=== PATIENT | female | born 1960 | race Caucasian/White ===

== ENCOUNTER 2020-01-14 22:16 | Emergency (ER) | payer MEDICARE, OTHER ==
[2020-01-14] MEDS ORDERED: Morphine 2 MG/ML SYRINGE ONE (22:34)
[2020-01-14] MEDS ORDERED: Morphine 2 MG/ML SYRINGE IVPUSH ONE (22:35)
[2020-01-14] MEDS ORDERED: Amiodarone In Dextrose,Iso-Osm 150 MG in Premix Bag 1 BAG IV ONE ×2 (23:00)
[2020-01-14] MEDS ORDERED: Amiodarone 150 MG/3 ML SDV ONE (23:00)
--- NOTE | 2020-01-14 23:04 | EDM.PDOC ---
ED HPI GENERAL MEDICAL PROBLEM - General Chief Complaint: CPR in Progress Stated Complaint: [facility] Time Seen by Provider: 01/14/20 22:16 - History of Present Illness INITIAL COMMENTS - FREE TEXT/NARRATIVE: 59-year-old female brought into the emergency room cardiopulmonary arrest. The patient called 911 after developing some chest pain while washing dishes. The patient just returned to her son's house after flying here from the [facility]. She thinks she was exposed to COVID 4 days ago. She developed chest pain. She was evaluated and brought in by EMS just as they were pulling into the ambulance bay the patient became unresponsive and CPR was initiated. The patient was wheeled to trauma 1. Were CPR was started after confirming no pulse. She was hooked up to the monitors. And received respiratory support from RT. We checked for a pulse there was no pulse however she had V. Fib on the monitor. She received 100 J of biphasic defibrillation. CPR was again initiated the patient was starting to breathe on her own she developed a pulse. The patient received 300 mg of amiodarone. She received respiratory support she maintained her own blood pressure. After several minutes she attempted conver sing with staff. And within 30 minutes of the event was back to baseline. Patient has a significant family history of coronary artery disease but the patient does not have a history of coronary artery disease however she has obesity issues and is post bypass surgery I believe with a sleeve procedure. She has never smoked she is treated for hypothyroidism. After ROSC the patient complained of chest pain especially with deep inspiration she has some underlying chest pressure and she has some significant left calf pain. - Related Data Allergies Allergy/AdvReac Type Severity Reaction Status Date / Time bupropion [From Wellbutrin] Allergy Severe Blisters Verified 01/15/20 00:30 ED ROS GENERAL - Review of Systems Review Of Systems: See Below Constitutional: Reports: No Symptoms HEENT: Reports: No Symptoms Respiratory: Reports: Pleuritic Chest Pain (After CPR) Cardiovascular: Reports: Chest Pain (She also has some chest pressure) GI/Abdominal: Reports: No Symptoms. Denies: Abdominal Pain : Reports: Other (She is currently on Macrodantin for a urinary tract infection) Musculoskeletal: Reports: No Symptoms Skin: Reports: No Symptoms Neurological: Reports: No Symptoms Psychiatric: Reports: No Symptoms Hematologic/Lymphatic: Reports: No Symptoms ED EXAM, CPR - Physical Exam Exam: See Below Limited By: No Limitations (After return of spontaneous circulation she is alert and oriented very cooperative) General Appearance: Alert, No Apparent Distress, Other (He is on supplemental oxygen per nasal cannula pulse ox shows 96% on 5 L) Eye Exam: Bilateral Eye: Normal Inspection, PERRL Ears: Normal External Exam, Normal Canal, Hearing Grossly Normal, Normal TMs Nose: Normal Inspection, Normal Mucosa, No Blood Throat/Mouth: Normal Inspection, Normal Lips, Normal Gums, Normal Oropharynx, Normal Voice, No Airway Compromise Head: Atraumatic, Normocephalic Neck: No: Lymphadenopathy (R), Lymphadenopathy (L), Tender Midline Respiratory Chest: No Respiratory Distress, Lungs Clear, Normal Breath Sounds Cardiovascular: Regular Rate, Rhythm, No Murmur, Other (And pretibial edema coul d be secondary to her body habitus) GI/Abdominal Exam: Normal Bowel Sounds, Soft, Non-Tender Extremities: Other (Has left-sided calf tenderness.) Skin Exam: Warm, Dry, Intact Course - Orders/Labs/Meds Orders: Active Orders 24 hr Category Date Time Status EKG Documentation Completion [RC] ASDIRECTED Care 01/14/20 22:20 Active EKG Documentation Completion [RC] ASDIRECTED Care 01/14/20 23:25 Active Chest 1V Frontal [CR] Stat Exams 01/14/20 22:49 Taken VL Duplex Lwr Ext Veins Ltd Lt [US] Stat Exams 01/14/20 22:55 Taken Amiodarone In Dextrose,Iso-Osm [Nexterone in Dextrose Med 01/14/20 22:45 Active 360 MG/200 ML] 360 mg in 200 ml IV ASDIRECTED Heparin Sodium/D5W [Heparin 25,000 Units in D5W 500 ML] Med 01/14/20 23:30 Active 25,000 units in 500 ml IV TITRATE Nitroglycerin/D5W [Nitroglycerin 25 MG/D5W 250 ML] Med 01/14/20 23:45 Active 25 mg in 250 ml IV TITRATE Medication Orders Amiodarone HCl/Dextrose (Nexterone In Dextrose 360 Mg/200 Ml) 360 mg in 200 mls @ 33.333 mls/hr IV ASDIRECTED ESTER; Protocol Heparin Sodium/Dextrose (Heparin 25,000 Units In D5w 500 Ml) 25,000 units in 500 mls @ 20 mls/hr IV TITRATE ESTER; Protocol Last Admin: 01/15/20 00:03 Dose: 1,000 units/hr, 20 mls/hr Documented by: ROCHELLE Cosigned by: ASHWINI Nitroglycerin/Dextrose (Nitroglycerin 25 Mg/D5w 250 Ml) 25 mg in 250 mls @ 1.5 mls/hr IV TITRATE ESTER; Protocol Last Titration: 01/15/20 00:19 Dose: 5 mcg/min, 3 mls/hr Documented by: [id number] Admin: 01/14/20 23:51 Dose: 2.5 mcg/min, 1.5 mls/hr Documented by: [email or web address] Labs: Laboratory Tests 01/14/20 01/14/20 01/14/20 Range/Units 22:28 22:28 22:28 WBC 4.80 (3.98-10.04) K/mm3 RBC 5.10 (3.98-5.22) M/mm3 Hgb 14.6 (11.2-15.7) gm/dl Hct 45.7 H (34.1-44.9) % MCV 89.6 (79.4-94.8) fl MCH 28.6 (25.6-32.2) pg MCHC 31.9 L (32.2-35.5) g/dl RDW Std Deviation 45.5 (36.4-46.3) fL Plt Count 260 (182-369) K/mm3 MPV 9.0 L (9.4-12.3) fl Neut % (Auto) 7.2 L (34.0-71.1) % Lymph % (Auto) 83.5 H (19.3-51.7) % Vance % (Auto) 3.5 L (4.7-12.5) % Eos % (Auto) 2.5 (0.7-5.8) Baso % (Auto) 0.6 (0.1-1.2) % Neut # (Auto) 0.34 L (1.56-6.13) K/mm3 Lymph # (Auto) 4.01 H (1.18-3.74) K/mm3 Vance # (Auto) 0.17 L (0.24-0.36) K/mm3 Eos # (Auto) 0.12 (0.04-0.36) K/mm3 Baso # (Auto) 0.03 (0.01-0.08) K/mm3 Manual Slide Review Abnormal smear PT 10.8 (9.7-11.7) SECONDS INR 1.01 APTT 30 (22-31) SECONDS Sodium 138 (136-145) mEq/L Potassium 3.3 L (3.5-5.1) mEq/L Chloride 101 (98-107) mEq/L Carbon Dioxide 20 L (21-32) mEq/L Anion Gap 20.3 H (5-15) BUN 19 H (7-18) mg/dL Creatinine 1.1 H (0.55-1.02) mg/dL Est Cr Clr Drug Dosing TNP Estimated GFR (MDRD) 51 (>60) mL/min BUN/Creatinine Ratio 17.3 (14-18) Glucose 227 H (74-106) mg/dL Lactic Acid (0.4-2.0) mmol/L Calcium 9.1 (8.5-10.1) mg/dL Total Bilirubin 0.7 (0.2-1.0) mg/dL AST 55 H (15-37) U/L ALT 112 H (14-59) U/L Alkaline Phosphatase 123 H (46-116) U/L Troponin I < 0.017 (0.00-0.056) ng/mL Total Protein 7.3 (6.4-8.2) g/dl Albumin 3.5 (3.4-5.0) g/dl Globulin 3.8 gm/dL Albumin/Globulin Ratio 0.9 L (1-2) SARS-CoV-2 RNA (INDIRA) (NEGATIVE) 01/14/20 01/14/20 01/15/20 Range/Units 22:28 23:12 01:04 WBC (3.98-10.04) K/mm3 RBC (3.98-5.22) M/mm3 Hgb (11.2-15.7) gm/dl Hct (34.1-44.9) % MCV (79.4-94.8) fl MCH (25.6-32.2) pg MCHC (32.2-35.5) g/dl RDW Std Deviation (36.4-46.3) fL Plt Count (182-369) K/mm3 MPV (9.4-12.3) fl Neut % (Auto) (34.0-71.1) % Lymph % (Auto) (19.3-51.7) % Vance % (Auto) (4.7-12.5) % Eos % (Auto) (0.7-5.8) Baso % (Auto) (0.1-1.2) % Neut # (Auto) (1.56-6.13) K/mm3 Lymph # (Auto) (1.18-3.74) K/mm3 Vance # (Auto) (0.24-0.36) K/mm3 Eos # (Auto) (0.04-0.36) K/mm3 Baso # (Auto) (0.01-0.08) K/mm3 Manual Slide Review PT (9.7-11.7) SECONDS INR APTT (22-31) SECONDS Sodium (136-145) mEq/L Potassium (3.5-5.1) mEq/L Chloride (98-107) mEq/L Carbon Dioxide (21-32) mEq/L Anion Gap (5-15) BUN (7-18) mg/dL Creatinine (0.55-1.02) mg/dL Est Cr Clr Drug Dosing Estimated GFR (MDRD) (>60) mL/min BUN/Creatinine Ratio (14-18) Glucose (74-106) mg/dL Lactic Acid 4.5 H* (0.4-2.0) mmol/L Calcium (8.5-10.1) mg/dL Total Bilirubin (0.2-1.0) mg/dL AST (15-37) U/L ALT (14-59) U/L Alkaline Phosphatase (46-116) U/L Troponin I 1.658 H* (0.00-0.056) ng/mL Total Protein (6.4-8.2) g/dl Albumin (3.4-5.0) g/dl Globulin gm/dL Albumin/Globulin Ratio (1-2) SARS-CoV-2 RNA (INDIRA) Negative (NEGATIVE) Meds: Medications Generic Name Dose Route Start Last Admin Trade Name Freq PRN Reason Stop Dose Admin Amiodarone HCl/Dextrose 360 mg in 200 mls @ 33.333 mls/hr 01/14/20 22:45 Nexterone In Dextrose 360 Mg/200 Ml IV ASDIRECTED [facility] Protocol Heparin Sodium/Dextrose 25,000 units in 500 mls @ 20 mls/hr 01/14/20 23:30 01/15/20 00:03 Heparin 25,000 Units In D5w 500 Ml IV 1,000 units/hr TITRATE ESTER 20 mls/hr Administration Protocol 1,000 UNITS/HR Nitroglycerin/Dextrose 25 mg in 250 mls @ 1.5 mls/hr 01/14/20 23:45 01/15/20 00:19 Nitroglycerin 25 Mg/D5w 250 Ml IV 5 mcg/min TITRATE ESTER 3 mls/hr Titration Protocol 2.5 MCG/MIN Discontinued Medications Generic Name Dose Route Start Last Admin Trade Name Freq PRN Reason Stop Dose Admin Aspirin 324 mg 01/14/20 23:30 01/14/20 23:49 Aspirin PO 01/14/20 23:31 324 mg ONETIME ONE Administration Heparin Sodium (Porcine) 4,000 units 01/14/20 23:30 01/14/20 23:47 Heparin Sodium IVPUSH 01/14/20 23:31 4,000 units .BOLUS ONE Administration Amiodarone HCl/Dextrose 150 mg 100 mls @ 600 mls/hr 01/14/20 23:00 / Premix IV 01/14/20 23:09 NOW ONE Morphine Sulfate Confirm 01/14/20 22:34 01/15/20 00:30 Morphine Administered 01/14/20 22:35 Not Given Dose 2 mg .ROUTE .STK-MED ONE Morphine Sulfate 1 mg 01/14/20 22:35 Morphine IVPUSH 01/14/20 22:36 ONETIME ONE Potassium Chloride 40 meq 01/15/20 00:34 01/15/20 00:57 Klor-Con M20 PO 01/15/20 00:35 40 meq ONETIME ONE Administration Rosuvastatin Calcium 20 mg 01/14/20 23:31 01/14/20 23:50 Crestor PO 01/14/20 23:32 20 mg ONETIME ONE Administration - Re-Assessments/Exams Free Text/Narrative Re-Assessment/Exam: 01/15/20 00:39 Lower extremity Dopplers unremarkable chest x-ray shows some borderline cardiomegaly but no acute changes. COVID testing is negative she is mildly hypokalemic with a potassium of 3.3 she will receive 40 mEq of oral potassium. It is negative lactic acid is 4.5 probably from cardiopulmonary arrest Case was discussed with Dr. Morrow, share holder at [place] in [place] who accepted the patient in transfer 2300. Case was also discussed with Dr. Gutierrez urologist at [place] who did recommend aspirin nitro heparin and start a statin. Went ahead and started her on nitro drip gently and so far she is doing okay heparin has been started she chewed aspirin 324 mg and she was started on Crestor 01/15/20 01:04 Patient still has limited chest pressure will increase the nitro drip to 7.5 mcg/min. Case reviewed with Dr. Gutierrez and we will recheck another troponin. He recommends decreasing the amiodarone drip if needed to help bring up the blood pressure if we have to increase the nitro. 01/15/20 01:41 Second troponin went up to 1.65. I have notified [place] 1 call of this. This is perhaps a little more than I would expect from a single shock and a few minutes of compression. Departure - Departure Time of Disposition: 23:00 Disposition: DC/Tfer to Acute Hospital 02 Clinical Impression: Cardiopulmonary arrest with successful resuscitation - Discharge Information Referrals: PCP,Not In Area [Primary Care Provider] - Forms: ED Department Discharge - My Orders Last 24 Hours: My Active Orders 01/14/20 22:20 EKG Documentation Completion [RC] ASDIRECTED 01/14/20 22:45 Amiodarone In Dextrose,Iso-Osm [Nexterone in Dextrose 360 MG/200 ML] 360 mg in 200 ml IV ASDIRECTED 01/14/20 22:55 VL Duplex Lwr Ext Veins Ltd Lt [US] Stat 01/14/20 23:25 EKG Documentation Completion [RC] ASDIRECTED 01/14/20 23:45 Nitroglycerin/D5W [Nitroglycerin 25 MG/D5W 250 ML] 25 mg in 250 ml IV TITRATE - Assessment/Plan Last 24 Hours: My Active Orders 01/14/20 22:20 EKG Documentation Completion [RC] ASDIRECTED 01/14/20 22:45 Amiodarone In Dextrose,Iso-Osm [Nexterone in Dextrose 360 MG/200 ML] 360 mg in 200 ml IV ASDIRECTED 01/14/20 22:55 VL Duplex Lwr Ext Veins Ltd Lt [US] Stat 01/14/20 23:25 EKG Documentation Completion [RC] ASDIRECTED 01/14/20 23:45 Nitroglycerin/D5W [Nitroglycerin 25 MG/D5W 250 ML] 25 mg in 250 ml IV TITRATE
[2020-01-14] MEDS ORDERED: Heparin Sodium/D5W 25,000 UNITS/500 ML BAG IV SCH (23:30)
[2020-01-14] MEDS ORDERED: Aspirin 81 MG Tab.Chew PO ONE (23:30)
[2020-01-14] MEDS ORDERED: Heparin Sodium 5,000 Units/ML Vial IVPUSH ONE (23:30)
[2020-01-14] MEDS ORDERED: Rosuvastatin 10 MG Tab PO ONE (23:31)
[2020-01-14] MEDS ORDERED: Nitroglycerin/D5W 25 MG/250 ML BOTTLE IV SCH (23:45)
[2020-01-15] MEDS ORDERED: Potassium Chloride 20 MEQ Tab.ER PO ONE (00:34)
== END 2020-01-15 01:41 ==
LOC: JD.ED 22:16
DX: I46.9 Cardiac arrest, cause unspecified (principal); E87.6 Hypokalemia; Z88.8 Allergy status to other drugs, medicaments and biological substances; Z20.828 Contact with and (suspected) exposure to other viral communicable diseases
CPT/HCPCS: 36415; 51701; 71045; 80053; 83605; 84484; 85025; 85610; 85730; 92950; 93005; 93971; 96365; 96366; 96368; 96375; 99285; A9270; J0282; J1644; J2270; J3490; U0002; 93010

== ENCOUNTER 2020-03-24 12:26 | Emergency (ER) | payer MEDICARE, OTHER ==
[2020-03-24] MEDS ORDERED: EPINEPHrine 1:10,000 1 MG/10 ML Syringe IM PRN (13:43)
[2020-03-24] MEDS ORDERED: Famotidine 20 MG/2 ML SDV IVPUSH PRN (13:43)
[2020-03-24] MEDS ORDERED: diphenhydrAMINE 50 MG/ML SDV IVPUSH PRN (13:43)
[2020-03-24] MEDS ORDERED: methylPREDNISolone Sodium Succinate 125 MG/2 ML SDV IVPUSH PRN (13:43)
[2020-03-24] MEDS ORDERED: Sodium Chloride 0.9% 10 ML Syringe FLUSH SCH (13:45)
--- NOTE | 2020-03-24 13:51 | EDM.PDOC ---
ED HPI GENERAL MEDICAL PROBLEM - General Chief Complaint: General Stated Complaint: COVID + Time Seen by Provider: 03/24/20 12:41 Source of Information: Reports: Patient, RN Notes Reviewed History Limitations: Reports: No Limitations - History of Present Illness INITIAL COMMENTS - FREE TEXT/NARRATIVE: Patient is a 59-year-old female presenting to the emergency department for mo noclonal antibody treatment after diagnosis of Covid at the walk-in clinic today. She states that she developed "cold symptoms "about 3 to 4 days ago. She describes nasal congestion, postnasal drip, and sore throat. She is had no cough or shortness of breath. Denies fever or chills. She has a history of cardiac arrest and has had an AICD placed. States that no blockages or abnormalities were found within the heart. They said she had "sick heart syndrome ". Throat Pain Score (Numeric/FACES): 3 - Related Data Allergies Allergy/AdvReac Type Severity Reaction Status Date / Time bupropion [From Wellbutrin] Allergy Intermediate Blisters Verified 01/17/20 12:36 Home Meds: Home Meds Biotin 1 tab PO DAILY 03/24/20 [History] Docusate Sodium [Colace] 1 tab PO DAILY 03/24/20 [History] Levothyroxine 1 tab PO WEEKLY 03/24/20 [History] Levothyroxine [Synthroid] 50 mcg PO DAILY 03/24/20 [History] Metoprolol Succinate 1 tab PO DAILY 03/24/20 [History] Mv-Mn/Iron/Folic Acid/Herb 190 [Vitamin D3 Complete Caplet] 1 tab PO DAILY 03/24/20 [History] Selenium 200 mcg PO DAILY 03/24/20 [History] Vitamin E 100 unit PO DAILY 03/24/20 [History] atorvaSTATin [Lipitor] 1 tab PO BEDTIME 03/24/20 [History] hydrOXYzine HCL [Atarax] 25 mg PO Q6H 03/24/20 [History] Past Medical History Cardiovascular History: Reports: DE, Pacemaker Respiratory History: Reports: Sleep Apnea [employer] History: Reports: Psychiatric History: Reports: Anxiety Endocrine/Metabolic History: Reports: Hypothyroidism - Infectious Disease History Infectious Disease History: Reports: Chicken Pox, Herpes - Past Surgical History HEENT Surgical History: Reports: Tonsillectomy GI Surgical History: Reports: Bariatric Procedure, Cholecystectomy, Hernia Repair/Other, Other (See Below) Other GI Surgeries/Procedures: hernia repair x 3, small intestinal removal. 2012 bariatric procedure Female Surgical History: Reports: Section, Hysterectomy Social & Family History - Tobacco Use Tobacco Use Status *Q: Never Tobacco User Second Hand Smoke Exposure: No - Caffeine Use Caffeine Use: Reports: Coffee - Recreational Drug Use Recreational Drug Use: No ED ROS GENERAL - Review of Systems Review Of Systems: See Below Constitutional: Reports: No Symptoms. Denies: Fever, Chills, Weakness HEENT: Reports: Rhinitis, Throat Pain Respiratory: Reports: No Symptoms Cardiovascular: Reports: No Symptoms Endocrine: Reports: No Symptoms GI/Abdominal: Reports: No Symptoms : Reports: No Symptoms Musculoskeletal: Reports: No Symptoms Skin: Reports: No Symptoms Neurological: Reports: Dizziness. Denies: Headache Psychiatric: Reports: No Symptoms Hematologic/Lymphatic: Reports: No Symptoms Immunologic: Reports: No Symptoms ED EXAM, GENERAL - Physical Exam Exam: See Below General Appearance: Alert, WD/WN, No Apparent Distress Respiratory/Chest: No Respiratory Distress, Lungs Clear, Normal Breath Sounds, No Accessory Muscle Use, Chest Non-Tender Cardiovascular: Normal Peripheral Pulses, Regular Rate, Rhythm, No Edema, No Gallop, No JVD, No Murmur, No Rub GI/Abdominal: Normal Bowel Sounds, Soft, Non-Tender, No Organomegaly, No Distention, No Abnormal Bruit, No Mass Neurological: Alert, Oriented, CN II-XII Intact, Normal Cognition, Normal Gait, Normal Reflexes, No Motor/Sensory Deficits Psychiatric: Normal Affect, Normal Mood Skin Exam: Warm, Dry, Intact, Normal Color, No Rash Course - Vital Signs Last Recorded V/S: Last Vital Signs Temp 97.3 F 03/24/20 12:39 Pulse 66 03/24/20 12:39 Resp 16 03/24/20 12:39 BP 118/66 03/24/20 12:39 Pulse Ox 96 03/24/20 12:39 - Orders/Labs/Meds Orders: Active Orders 24 hr Category Date Time Status Vital Signs [RC] Q15M Care 03/24/20 13:43 Active EPINEPHrine [EPINEPHrine 1:10,000] Med 03/24/20 13:43 Active 0.3 mg IM ONETIME PRN Famotidine [Pepcid] Med 03/24/20 13:43 Active 20 mg IVPUSH ONETIME PRN Sodium Chloride 0.9% [Saline Flush] Med 03/24/20 13:45 Active 30 ml FLUSH ASDIRECTED diphenhydrAMINE [Benadryl] Med 03/24/20 13:43 Active 50 mg IVPUSH ONETIME PRN methylPREDNISolone Sod Succ [Solu-MEDROL] Med 03/24/20 13:43 Active 125 mg IVPUSH ONETIME PRN Medication Orders Diphenhydramine HCl (Benadryl) 50 mg IVPUSH ONETIME PRN PRN Reason: hypersensitivity reaction Epinephrine HCl (Epinephrine 1:10,000) 0.3 mg IM ONETIME PRN PRN Reason: hypersensitivity reaction Famotidine (Pepcid) 20 mg IVPUSH ONETIME PRN PRN Reason: hypersensitivity reaction Methylprednisolone Sodium Succinate (Solu-Medrol) 125 mg IVPUSH ONETIME PRN PRN Reason: hypersensitivity reaction Sodium Chloride (Saline Flush) 30 ml FLUSH ASDIRECTED [facility] Labs: Laboratory Tests 03/24/20 03/24/20 Range/Units 14:50 14:50 WBC 9.53 (3.98-10.04) K/mm3 RBC 4.86 (3.98-5.22) M/mm3 Hgb 13.8 (11.2-15.7) gm/dl Hct 43.1 (34.1-44.9) % MCV 88.7 (79.4-94.8) fl MCH 28.4 (25.6-32.2) pg MCHC 32.0 L (32.2-35.5) g/dl RDW Std Deviation 45.3 (36.4-46.3) fL Plt Count 265 (182-369) K/mm3 MPV 8.9 L (9.4-12.3) fl Neut % (Auto) 61.2 (34.0-71.1) % Lymph % (Auto) 27.1 (19.3-51.7) % [place] % (Auto) 9.7 (4.7-12.5) % Eos % (Auto) 1.5 (0.7-5.8) Baso % (Auto) 0.3 (0.1-1.2) % Neut # (Auto) 5.84 (1.56-6.13) K/mm3 Lymph # (Auto) 2.58 (1.18-3.74) K/mm3 [place] # (Auto) 0.92 H (0.24-0.36) K/mm3 Eos # (Auto) 0.14 (0.04-0.36) K/mm3 Baso # (Auto) 0.03 (0.01-0.08) K/mm3 Sodium 141 (136-145) mEq/L Potassium 4.0 (3.5-5.1) mEq/L Chloride 105 (98-107) mEq/L Carbon Dioxide 26 (21-32) mEq/L Anion Gap 14.0 (5-15) BUN 13 (7-18) mg/dL Creatinine 0.8 (0.55-1.02) mg/dL Est Cr Clr Drug Dosing 55.73 mL/min Estimated GFR (MDRD) > 60 (>60) mL/min BUN/Creatinine Ratio 16.3 (14-18) Glucose 96 (74-106) mg/dL Calcium 7.0 L D (8.5-10.1) mg/dL Total Bilirubin 0.8 (0.2-1.0) mg/dL AST 11 L (15-37) U/L ALT 19 (14-59) U/L Alkaline Phosphatase 134 H (46-116) U/L Total Protein 7.3 (6.4-8.2) g/dl Albumin 3.6 (3.4-5.0) g/dl Globulin 3.7 gm/dL Albumin/Globulin Ratio 1.0 (1-2) Meds: Medications Generic Name Dose Route Start Last Admin Trade Name Freq PRN Reason Stop Dose Admin Diphenhydramine HCl 50 mg 03/24/20 13:43 Benadryl IVPUSH ONETIME PRN hypersensitivity reaction Epinephrine HCl 0.3 mg 03/24/20 13:43 Epinephrine 1:10,000 IM ONETIME PRN hypersensitivity reaction Famotidine 20 mg 03/24/20 13:43 Pepcid IVPUSH ONETIME PRN hypersensitivity reaction Methylprednisolone Sodium Succinate 125 mg 03/24/20 13:43 Solu-Medrol IVPUSH ONETIME PRN hypersensitivity reaction Sodium Chloride 30 ml 03/24/20 13:45 Saline Flush FLUSH ASDIRECTED ESTER Discontinued Medications Generic Name Dose Route Start Last Admin Trade Name Freq PRN Reason Stop Dose Admin Bamlanivimab 700 mg/ Sodium 270 mls @ 270 mls/hr 03/24/20 13:43 03/24/20 14:53 Chloride IV 03/24/20 13:44 270 mls/hr ONETIME ONE Administration Protocol - Re-Assessments/Exams Free Text/Narrative Re-Assessment/Exam: Patient is a 59-year-old female presenting to the emergency department after a positive Covid test at the walk-in clinic today. She presented for monoclonal antibody treatment. She was quite apprehensive with regards to the treatment. After lengthy discussion of the risks the benefits, she discussed it with her sons and has decided to proceed with the treatment. Based on her age of greater than 55 and history of heart disease as well as her BMI greater than 35, she does qualify for the treatment. I spoke with the patient to provide information about bamlanivimab treatment. I offered them the ``Patient and Caregiver EUA Bamlanivimad Fact Sheet to read and review I stated the drug has been approved by an emergency use authorization (EUA) process and has not fully been FDA reviewed or approved The patient meets the EUA requirements I discussed there are other potential treatment options that are currently not FDA approved to treat COVID-19. Offered opportunity to ask questions and all questions were answered Patient voiced understanding and agreed to proceed with treatment. 03/24/20 17:20 Hematology is grossly unremarkable. Patient's vital signs have remained stable throughout her stay in the ER. Patient tolerated infusion of Bamlanivimab with no complications. We will discharge her home with return precautions. Discharge instructions as documented. Departure - Departure Time of Disposition: 17:08 Disposition: Home, Self-Care 01 Condition: Good Clinical Impression: COVID-19 - Discharge Information *PRESCRIPTION DRUG MONITORING PROGRAM REVIEWED*: No *COPY OF PRESCRIPTION DRUG MONITORING REPORT IN PATIENT ÁLVARO: No Instructions: COVID-19, COVID-19 Frequently Asked Questions Referrals: Tammy Stevens MD [Primary Care Provider] - Forms: ED Department Discharge Additional Instructions: You were seen in the emergency department today for monoclonal antibody therapy after being diagnosed with Covid in the clinic. Basic labs were completed and found to be normal. While in the ER, you received Bamlanivimab which is a monoclonal antibody. You tolerated the infusion well. Recommend that you monitor your oxygen saturations at home using a home pulse oximeter. If you find you are maintaining an oxygen saturation of 90 or lower or you develop any other new or worsening symptoms of concern, please return to the emergency department for reevaluation. Sepsis Event Note (ED) - Evaluation Sepsis Screening Result: No Definite Risk - Focused Exam Vital Signs: Vital Signs Temp Pulse Resp BP Pulse Ox 03/24/20 12:39 97.3 F 66 16 118/66 96 - My Orders Last 24 Hours: My Active Orders 03/24/20 13:43 Vital Signs [RC] Q15M EPINEPHrine [EPINEPHrine 1:10,000] 0.3 mg IM ONETIME PRN Famotidine [Pepcid] 20 mg IVPUSH ONETIME PRN diphenhydrAMINE [Benadryl] 50 mg IVPUSH ONETIME PRN methylPREDNISolone Sod Succ [Solu-MEDROL] 125 mg IVPUSH ONETIME PRN 03/24/20 13:45 Sodium Chloride 0.9% [Saline Flush] 30 ml FLUSH ASDIRECTED - Assessment/Plan Last 24 Hours: My Active Orders 03/24/20 13:43 Vital Signs [RC] Q15M EPINEPHrine [EPINEPHrine 1:10,000] 0.3 mg IM ONETIME PRN Famotidine [Pepcid] 20 mg IVPUSH ONETIME PRN diphenhydrAMINE [Benadryl] 50 mg IVPUSH ONETIME PRN methylPREDNISolone Sod Succ [Solu-MEDROL] 125 mg IVPUSH ONETIME PRN 03/24/20 13:45 Sodium Chloride 0.9% [Saline Flush] 30 ml FLUSH ASDIRECTED
== END 2020-03-24 17:45 | disposition home or self-care (01) ==
LOC: JD.ED 12:26
DX: U07.1 COVID-19 (principal); E03.9 Hypothyroidism, unspecified; I25.2 Old myocardial infarction; Z88.8 Allergy status to other drugs, medicaments and biological substances; Z79.899 Other long term (current) drug therapy
CPT/HCPCS: 36415; 80053; 85025; 99283; J7050; M0239

== ENCOUNTER 2021-01-03 17:13 | Emergency (ER) | payer MEDICARE, OTHER | END 2021-01-03 17:51 | disposition left against medical advice (07) | LOC: JD.ED 17:13 | DX: Z53.21 Procedure and treatment not carried out due to patient leaving prior to being seen by health care provider (principal) ==